=== PATIENT | male | born 1975 | race Caucasian/White ===

== ENCOUNTER 2021-12-17 10:06 | Emergency (ER) | payer OTHER ==
[2021-12-17] MEDS: Ondansetron 4 MG/2 ML SDV IVPUSH ONE (10:44)
[2021-12-17] MEDS: cefTRIAXone 1 GM in Sodium Chloride 0.9% 100 ML IV ONE (10:46)
[2021-12-17] MEDS: Morphine 2 MG/ML SYRINGE IVPUSH ONE ×2 (10:47→11:55)
[2021-12-17] MEDS: Ketorolac 30 MG/ML SDV IVPUSH ONE (10:49)
[2021-12-17] MEDS: Sodium Chloride 0.9% 10 ML Syringe FLUSH PRN (10:50)
[2021-12-17 11:12] LABS: ANION GAP 9.2 meq/L (7-15); CHLORIDE,CL 102 mmol/L (98-107); ESTIMATED GFR 99 mL/min (>=60); SODIUM,NA 140 mmol/L (136-145)
== END 2021-12-17 12:20 | disposition home or self-care (01) ==
LOC: LL.ED 10:06
DX: K04.7 Periapical abscess without sinus (principal); Z88.8 Allergy status to other drugs, medicaments and biological substances; Z79.899 Other long term (current) drug therapy
CPT/HCPCS: 36415; 80053; 85025; 96365; 96375; 96376; 99283; 99283-25; J0696; J1885; J2270; J2405; J3490